=== PATIENT | female | born 1965 | race Caucasian/White ===

== ENCOUNTER → 2017-11-21 | Outpatient (CLI) | payer BC ==
--- NOTE | 2017-11-21 17:09 | WWHP ---
[facility] - HISTORY AND PHYSICAL DATE OF DICTATION: 11/21/2017 CHIEF COMPLAINT: The patient is here for her routine gynecologic exam and mammogram. HPI: This is a 51-year-old, G2, P2 with an LMP of 10/21/2017. Her is status post vasectomy. The patient has been experiencing a change in her menses. They still are regular every month and are lasting about 7 days. She states the menses are now getting heavier toward the middle of the menses and days 4, 5 and 6, seem to be the heaviest. She states the early part of the periods used to be the heavy part. During the heavy days, she has to change her protection up to every 1 hour and does use tampons and pad at those times. She also notices increased cramping during the heavier days. She has been having moodiness during her periods as well. PAST MEDICAL HISTORY: Gastroesophageal reflux disease and elevated cholesterol. MEDICATIONS: 1. Atorvastatin 1 daily. 2. Prilosec p.r.n. 3. Ibuprofen p.r.n. 4. Xanax p.r.n. ALLERGIES: TO KEFLEX. PAST SURGICAL HISTORY: section x2. Varicose vein laser treatment in 2013 and are a rectal cutaneous fistula repair in the past. 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 SOCIAL HISTORY: She denies tobacco and drug use and has 1 to 2 alcohol containing drinks per month. 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 FAMILY HISTORY: Grandmother had breast cancer. Father had prostate cancer. REVIEW OF SYSTEMS: She has lost about 17 pounds and she believes this is because she has been eating less and increasing her activity. She denies respiratory, cardiac or GI problems. PHYSICAL EXAM: Blood pressure 110/68, height 5 feet 8 inches, weight 186 pounds. Temperature 98.1, pulse 93, BMI 28. This is a well-developed, well-nourished, white female, who is alert and oriented x3, in no acute distress. HEENT is within normal limits. NECK: Supple without mass or thyromegaly. Chest and LUNGS: Clear to auscultation. HEART: Regular rate and rhythm. Breasts are without mass or discharge. Axillary exam is negative for adenopathy. Back negative for CVA tenderness. ABDOMEN: Soft, nontender, without palpable masses. Pelvic exam: Normal external genitalia. Cervix and vagina appear normal. There is no evidence of prolapse. The uterus is slightly retroverted, nongravid size and nontender. There are no palpable adnexal masses or tenderness. Rectal exam is negative for mass or tenderness and is negative for occult blood. Extremities nontender. IMPRESSION: 1. A 51-year-old female with mild hypermenorrhea with unremarkable gynecologic exam. 2. The patient's is status post vasectomy. PLAN: 1. Pap smear was performed. 2. Self breast examination was discussed. 3. Mammogram will be done today. 4. We have had a long discussion regarding her hypermenorrhea. We will have a trial of meclofenamate sodium 100 mg p.o. t.i.d. p.r.n. for heavy menstrual flow up to 6 days per cycle. She will keep a menstrual calendar. After 3 menstrual cycles, she will call if she is not having significant improvement at which time we can consider endometrial ablation as an option. 5. She will return in 1 year and p.r.n. MMODL / IJN: [id number] /
--- NOTE | 2017-11-22 13:16 | MM ---
Reason for exam: screening (asymptomatic). Last mammogram was performed 1 year and 6 months ago. History: Family history of breast cancer in maternal grandmother at age 70. Physical Findings: A clinical breast exam by your physician is recommended on an annual basis and results should be correlated with mammographic findings. MG 3D Screening Mammo W/Cad Bilateral CC and MLO view(s) were taken. Prior study comparison: June 01, 2016, bilateral MG 3d screening mammo w/cad. July 10, 2014, left breast MG work up mamm w CAD LT. The breast tissue is heterogeneously dense. This may lower the sensitivity of mammography. No suspicious abnormality. ASSESSMENT: Negative, BI-RAD 1 RECOMMENDATION: Routine screening mammogram of both breasts in 1 year.
== END | disposition home or self-care (01) ==
LOC: WWCWWP 14:21
PROVIDERS: ATTEND Obstetrics & Gynecology
DX: Z12.31 Encounter for screening mammogram for malignant neoplasm of breast (principal)
CPT/HCPCS: 77063; 77067

== ENCOUNTER → 2019-12-18 | Outpatient (CLI) | payer BC ==
[2019-12-18 08:02] VITALS: BP 136/85; PULSE 88; RESP 18; TEMP 98.1
--- NOTE | 2019-12-18 08:54 | P.HPOB ---
History of Present Illness H&P Date: 12/18/19 Chief Complaint: The patient is here for her routine gynecologic exam and ma mmogram. This is a 54-year-old with an LMP of 12/09/2019. The patient's is status post vasectomy. She states she continues to have heavy menstrual periods that are lasting about 1 week. She said has heavy menstrual flow for the first 5 days and can have to change her protection up to every 1 hour and uses both tampons and pads at those times. She states she did not use the meclofenamate sodium as prescribed 2 years ago. She states she has had issues with NSAID type medications with stomach problems and she also believes cost of the medication was a concern. She is interested in proceeding 2 endometrial ablation for her heavy menstrual flow. Her last Pap smear done on 11/21/2017 showed ASCUS with negative high-risk HPV testing. Review of Systems The patient has gained 14 pounds over the last 2 years. This was after losing about 17 pounds the year prior. She denies respiratory, cardiac, or G.I. problems. 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 History of Any Multi-Drug Resistant Organisms: None Reported Past Surgical History: Section Additional Past Surgical History / Comment(s): 2. Varicose vein laser treatment. A rectal cutaneous fistula repair. 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 - Past Family History Father Family Medical History: Cancer Additional Family Medical History / Comment(s): Prostate cancer. Grandmother Family Medical History: Cancer Additional Family Medical History / Comment(s): Breast cancer. Medications and Allergies Home Medications Medication Instructions Recorded Confirmed Type Atorvastatin [Lipitor] 40 mg PO HS 12/18/19 12/18/19 History Ibuprofen 200 mg PO Q8H 12/18/19 12/18/19 History Magnesium 250 mg PO HS 12/18/19 12/18/19 History Potassium Gluconate 99 mg PO HS 12/18/19 12/18/19 History Ubidecarenone [Co Q-10] 100 mg PO HS 12/18/19 12/18/19 History Allergies Allergy/AdvReac Type Severity Reaction Status Date / Time cephalexin monohydrate Allergy Itching Verified 12/18/19 08:02 [From Keflex] Exam Vital Signs Temp Pulse Resp BP Pulse Ox 12/18/19 08:00 98.1 F 88 18 136/85 100 Intake and Output 12/17/19 12/18/19 12/18/19 22:59 06:59 14:59 Other: Weight 90.718 kg Height 5 feet 8 inches, weight 200 pounds, BMI 30.4. This is a well-developed well-nourished white female who is alert and oriented times 3 in no acute distress. HEENT: Within normal limits. NECK: Supple without mass or thyromegaly. CHEST AND LUNGS: Clear to auscultation. HEART: Regular rate and rhythm. BREASTS: Are without mass or discharge. AXILLARY EXAM: Negative for adenopathy. BACK: Negative for CVA tenderness. ABDOMEN: Soft, nontender, without palpable masses. PELVIC EXAM: Normal external genitalia. Cervix and vagina appear normal. The cervix appears nulliparous. There is no unusual discharge. There is no evidence of prolapse. The uterus is midposition, nongravid size and nontender. There are no palpable adnexal masses or tenderness. RECTAL EXAM: Rectovaginal exam is negative for mass or tenderness and is negative for occult blood. EXTREMITIES: Nontender. IMPRESSION: 1. 54-year-old premenopausal female whose is status post vasectomy, with menorrhagia and normal gynecologic exam. 2. The patient is declining medication for her menorrhagia and would like to proceed with endometrial ablation. 3. Previous Paps or showed ASCUS with negative high-risk HPV testing on 11/21/2017. PLAN: 1. Pap smear with high-risk HPV testing was obtained. 2. Self breast awareness was discussed with the patient. 3. Screening mammogram will be done today. 4. We had a long discussion regarding options for her menorrhagia. Because of stomach issues with NSAID type medications, the patient would like to proceed directly to endometrial ablation for her heavy menstrual periods. After re viewing her Pap smear results, she will be referred for possible endometrial ablation. 5. The ACOG FAQ handout on endometrial ablation was given to the patient. 6.Osteoporosis prevention was discussed. I have stressed the importance of adequate calcium, vitamin D and regular exercise. Recommended amounts of calcium and vitamin D were also discussed. 7. I have recommended screening colonoscopy based on her age. She states she is already in the process of scheduling this through Dr. Navarrete's office. 8. She was advised to return in one year for her annual well woman exam.
--- NOTE | 2019-12-19 13:37 | MM ---
Reason for exam: screening (asymptomatic). Last mammogram was performed 2 years and 1 month ago. History: Family history of breast cancer in maternal grandmother at age 70. Physical Findings: A clinical breast exam by your physician is recommended on an annual basis and results should be correlated with mammographic findings. MG 3D Screening Mammo W/Cad Bilateral CC and MLO view(s) were taken. Prior study comparison: November 21, 2017, bilateral MG 3d screening mammo w/cad. June 01, 2016, bilateral MG 3d screening mammo w/cad. The breast tissue is heterogeneously dense. This may lower the sensitivity of mammography. Benign appearing bilateral calcifications. No suspicious abnormality. No significant changes when compared with prior studies. ASSESSMENT: Benign, BI-RAD 2 RECOMMENDATION: Routine screening mammogram of both breasts in 1 year.
== END | disposition home or self-care (01) ==
LOC: WWCWWP 07:44
PROVIDERS: ATTEND Obstetrics & Gynecology
DX: Z12.31 Encounter for screening mammogram for malignant neoplasm of breast (principal)
CPT/HCPCS: 77063; 77067

== ENCOUNTER 2020-05-04 09:58 | Day surgery (SDC) | payer BC ==
[2020-04-30 14:52] VITALS: BMI 30.4
--- NOTE | 2020-05-01 15:29 | HP ---
HISTORY AND PHYSICAL HISTORY OF PRESENT ILLNESS: The patient is a 54-year-old 2, para 2-0-0-2, initially referred for evaluation of menorrhagia. She reports a roughly 5-year history of significantly heavy bleeding on a monthly basis lasting at least 7 days, of which 5 days are very heavy. She is regularly bleeding through double protection measures. She also reports moderate dysmenorrhea. She is beginning to have some emerging cycle irregularity, with cycle length now between 21 and 28 days. Her has had a vasectomy. We discussed multiple different options and she is aware of other hormonal options for treatment but has requested NovaSure endometrial ablation. PAST MEDICAL HISTORY: Past medical history is significant for gastroesophageal reflux, hyperlipidemia and menorrhagia as noted above. PAST SURGICAL HISTORY: She had a section x2. She apparently has also had a rectal fistula repair and varicose vein stripping. There were no apparent anesthetic concerns. OBSTETRICAL HISTORY: 2, para 2-0-0-2, with two term sections. Method of contraception is vasectomy. GYNECOLOGIC HISTORY: Unremarkable, with no history of any infections to include STDs. FAMILY HISTORY: Noncontributory. SOCIAL HISTORY: The patient is and is a nonsmoker but does have remote history. She reports occasional alcohol and no other social concerns. CURRENT MEDICATIONS: Current medications include atorvastatin 40 mg daily, magnesium 250 mg daily, potassium 99 mg daily, ibuprofen as needed, and Co Q10/vitamin E/fish oil daily. ALLERGIES: She has an APPARENT ALLERGY TO CEPHALEXIN without any noted reaction. PHYSICAL EXAMINATION: Vital signs are stable. The patient is afebrile. In general, this is a well- developed, well-nourished white female in no acute distress. Her heart has a regular rhythm and rate without murmur. Her lungs are clear to auscultation bilaterally in all werner. Her abdomen is nondistended, has normoactive bowel sounds, soft, nontender, and without any palpable masses, hepatosplenomegaly or hernias. Her extremities are without any cyanosis, clubbing or edema and are nontender to palpation bilaterally. Pelvic examination demonstrates normal external genitalia and BUS with normal vaginal mucosa and cervix. There is no cervical motion tenderness. The uterus is 5-6 weeks in size, anteverted, mobile, nontender and normal in shape. Endometrial biopsy was done in one pass and sounded to 9 cm with the resulting pathology being found benign. The adnexa are normal and nontender without mass bilaterally. ASSESSMENT AND PLAN: Menorrhagia: We discussed multiple different alternatives for treatment and the patient has expressed a desire to proceed with diagnostic hysteroscopy with NovaSure endometrial ablation. Risks and complications have been discussed at length, including the risk for bleeding, bleeding requiring transfusion, infection, and injury to local structures to specifically include the possibility of uterine perforation, subsequent Asherman syndrome, and subsequent hematometra or post-ablation pain syndrome. She has understood all this and has agreed to proceed. We are scheduled for the morning of Monday, May 04, for the procedure as outlined above, diagnostic hysteroscopy with NovaSure endometrial ablation. MMODL / IJN: [id number] /
[~2020-05-04 09:58] MED LIST: DEXAMETHASONE SOD PHOSPHATE 10 MG/ML 1 ML VIAL IV ONE; HYDROmorphone 0.5 MG/0.5 ML SYRINGE IVP PRN; LACTATED RINGERS 1,000 ML IV SCH; LIDOCAINE 1% (10MG/ML) FOR IV START INTRADERMA PRN; ONDANSETRON 4 MG/2 ML VIAL IVP ONE; Pre Op ABX Message 1 EACH MISC MISCELLANE ONE; SCOPOLAMINE 1.5MG/72HR PATCH TRANSDERM ONE
[2020-05-04 10:30] LABS: Glucose,Whole Blood 107 mg/dL (75-99)
[2020-05-04] MEDS ORDERED: ONDANSETRON 4 MG/2 ML VIAL ONE (10:32)
[2020-05-04] MEDS ORDERED: PROPOFOL 10 MG/ML 20 ML VIAL IV ONE (11:18)
[2020-05-04] MEDS ORDERED: fentaNYL (PF) 50 MCG/ML 2 ML AMP ONE (11:18)
[2020-05-04] MEDS ORDERED: MIDAZOLAM 2 MG/2 ML VIAL ONE (11:18)
[2020-05-04] MEDS ORDERED: LIDOCAINE 1% INJ 10MG/ML (20 ML MDV) ONE (11:18)
[2020-05-04] MEDS ORDERED: KETOROLAC 30 MG/ML 1 ML VIAL ONE (11:18)
[2020-05-04] MEDS ORDERED: METOCLOPRAMIDE 5 MG/ML 2 ML VIAL IVP PRN (11:54)
[2020-05-04] MEDS ORDERED: KETOROLAC 30 MG/ML 1 ML VIAL IVP PRN (11:54)
[2020-05-04] MEDS ORDERED: Acetaminophen-Codeine 300-30mg TAB PO PRN ×2 (11:54)
[2020-05-04] MEDS ORDERED: IBUPROFEN 600 MG TAB PO PRN (11:54)
[2020-05-04] MEDS ORDERED: SIMETHICONE 80 MG CHEWABLE PO PRN (11:54)
[2020-05-04] MEDS ORDERED: ONDANSETRON 4 MG/2 ML VIAL IVP PRN (11:54)
[2020-05-04] MEDS ORDERED: diphenhydrAMINE 50 MG/ML 1 ML VIAL IVP PRN (11:54)
[2020-05-04] MEDS ORDERED: LACTATED RINGERS 1,000 ML IV SCH (12:00)
--- NOTE | 2020-05-04 12:02 | P.OP ---
Date of Procedure: 05/04/20 Preoperative Diagnosis: #1. Menorrhagia Postoperative Diagnosis: Same Procedure(s) Performed: #1. Diagnostic hysteroscopy #2. NovaSure endometrial ablation Anesthesia: other (Gen. by LMA) Surgeon: Sean Victoria Estimated Blood Loss (ml): 2 IV fluids (ml): 400 Urine output (ml): 20 Pathology: none sent Condition: stable Disposition: PACU Operative Findings: Preoperative pelvic examination demonstrated a 5-6 week anteverted mobile normal shaped uterus with normal adnexa bilaterally. Intraoperatively, the bilateral tubal ostia regions were seen after the openings of. There was some minimal shaggy tissue scattered throughout the fundus. The uterus sounded to 9 cm while the cervix was 3 cm in length. The settings for the NovaSure tool where a length of 6.0 cm, a width of 4.8 cm for a total power of 158 W. After a total run time of 75 seconds, the base unit read "procedure complete." There were, however, several stoppages with a vacuum failure during the procedure that resumed without difficulty. The postprocedural result appeared to be excellent. The patient is a borderline candidate for vaginal hysterectomy, more likely a good candidate for a da Flori approach should it be necessary. Description of Procedure: The patient was prepped and draped in usual fashion after general anesthesia was administered by the anesthesiologist. A weighted speculum was placed and the anterior lip of the cervix grasped with single-tooth tenaculum. The bladder was drained of approximately 20 mL of clear sury urine. The uterus was sounded to 9 cm with a cervical length of 3 cm as noted above. Serial dilation was carried out to admit the diagnostic hysteroscope which was placed and the uterus and the cavity distended with saline. The findings are as noted above with no obvious pathology and the bilateral tubal ostia were seen. The scope was then set aside and the NovaSure tool placed in the fundus, opened, and seated well. The settings for the tool were as noted above, a length of 6.0 cm, a width of 4.8 cm, for a total power 158 W. The cavity check was attempted and passed without difficulty. The tool was enabled and the run started. During the run, there were several stoppages of the radiofrequency secondary to a vacuum failure as noted on the base unit. The tool was really enabled and the run restarted at the same point. After 3 such stoppages, the procedure finally continued until the base unit read "procedure complete." The 2 was closed, removed, and discarded and the diagnostic hysteroscope replaced into the uterine cavity with an excellent result apparent. All instrumentation was then removed. There was no ongoing bleeding either from the uterus nor from the tenaculum site. Estimated blood loss for the entire case was 2 mL or less. There were no c omplications. All sponge, instrument, and needle counts were correct. The patient is a marginal candidate for vaginal hysterectomy at best implying that a da Flori approach would probably be the best approach should hysterectomy become necessary. The patient tolerated the procedure well and proceeded to the recovery room in stable condition.
[2020-05-04 12:04] VITALS: TEMP 97.6
[2020-05-04 12:40] VITALS: RESP 18
[2020-05-04 12:56] VITALS: BP 120/78; PULSE 65
== END 2020-05-04 13:07 | disposition home or self-care (01) ==
LOC: OR 09:58
PROVIDERS: ATTEND Obstetrics & Gynecology
DX: N92.0 Excessive and frequent menstruation with regular cycle (principal); E78.5 Hyperlipidemia, unspecified; K21.9 Gastro-esophageal reflux disease without esophagitis; Z88.1 Allergy status to other antibiotic agents; Z87.891 Personal history of nicotine dependence; Z79.899 Other long term (current) drug therapy; Z98.890 Other specified postprocedural states; Z98.891 History of uterine scar from previous surgery
CPT/HCPCS: 81025; 58563; J2250; J1100; J2405; J2001; J3010; J1885; J2704

== ENCOUNTER → 2021-11-16 | Outpatient (CLI) | payer BC ==
[2021-11-16 12:58] VITALS: BP 113/75; PULSE 88; RESP 18; TEMP 97.7
--- NOTE | 2021-11-16 13:29 | P.HPOB ---
History of Present Illness H&P Date: 11/16/21 Chief Complaint: The patient is here for her routine gynecologic exam and ma mmogram. This is a 55-year-old with an LMP of April 2020. She is status post endometrial ablation. She has been amenorrheic since the ablation. She has occasional mild hot flashes but not very significant. She is without gynecologic complaints. Review of Systems The patient's weight has been stable over the last year. She denies respiratory, cardiac, or G.I. problems. 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 History of Any Multi-Drug Resistant Organisms: None Reported Past Surgical History: Section, Uterine Ablation Additional Past Surgical History / Comment(s): 2. Varicose vein laser treatment. A rectal cutaneous fistula repair. Endometrial ablation 2019. Past Psychological History: No Psychological Hx Reported Smoking Status: Former smoker Past Alcohol Use History: Occasional (0-3 per week.) Past Drug Use History: Marijuana Additional Drug Use History / Comment(s): Denies current use of marijuana. - Past Family History Father Family Medical History: Cancer Additional Family Medical History / Comment(s): Prostate cancer. Grandmother Family Medical History: Cancer Additional Family Medical History / Comment(s): Breast cancer. Medications and Allergies Home Medications Medication Instructions Recorded Confirmed Type Atorvastatin [Lipitor] 40 mg PO HS 12/18/19 05/04/20 History Ibuprofen 200 mg PO Q8H 12/18/19 05/04/20 History Ubidecarenone [Co Q-10] 100 mg PO HS 12/18/19 05/04/20 History ALPRAZolam [Xanax] 0.5 mg PO DAILY PRN 04/30/20 05/04/20 History Multivitamins, Thera [Multivitamin 1 tab PO DAILY 04/30/20 05/04/20 History (formulary)] Allergies Allergy/AdvReac Type Severity Reaction Status Date / Time cephalexin monohydrate Allergy Itching/alpesh Verified 11/16/21 12:53 [From Keflex] h Exam Vital Signs Temp Pulse Resp BP Pulse Ox 11/16/21 12:53 97.7 F 88 18 113/75 100 Intake and Output 11/15/21 11/16/2111/16/22 22:59 06:59 14:59 Other: Weight 90.718 kg Height 5 feet 9 inches, weight 200 pounds, BMI 29.5. This is a well-developed well-nourished white female who is alert and oriented times 3 in no acute distress. HEENT: Within normal limits. NECK: Supple without mass or thyromegaly. CHEST AND LUNGS: Clear to auscultation. HEART: Regular rate and rhythm. BREASTS: Are without mass or discharge. AXILLARY EXAM: Negative for adenopathy. BACK: Negative for CVA tenderness. ABDOMEN: Soft, nontender, without palpable masses. PELVIC EXAM: Normal external genitalia. Cervix and vagina appear normal. There is no unusual discharge. There is no evidence of prolapse. The uterus is midposition, nongravid size and nontender. There are no palpable adnexal masses or tenderness. RECTAL EXAM: Rectovaginal exam is negative for mass or tenderness and is negative for occult blood. EXTREMITIES: Nontender. IMPRESSION: 1. 55-year-old perimenopausal female with normal gynecologic exam. 2. Amenorrhea following endometrial ablation in 2019. 3. Very mild vasomotor symptoms. PLAN: 1. Pap smear was deferred since she had a normal Pap smear cotest in 2019. We will plan on repeating Pap smear cotest in 1-2 years since her previous Pap smear in 2018 showed ASCUS. 2. Self breast awareness was discussed with the patient. We have also discussed symptoms associated with inflammatory breast cancer. 3. Screening mammogram will be done today. 4. Osteoporosis prevention was discussed. I have stressed the importance of adequate calcium, vitamin D and regular exercise. Recommended amounts of calcium and vitamin D were also discussed. 5. She has completed her Covid vaccination series. 6. She was advised to return in one year for her annual well woman exam.
--- NOTE | 2021-11-17 11:57 | MM ---
Reason for exam: screening (asymptomatic). Last mammogram was performed 1 year and 11 months ago. History: Family history of breast cancer in maternal grandmother at age 70. Physical Findings: A clinical breast exam by your physician is recommended on an annual basis and results should be correlated with mammographic findings. MG 3D Screening Mammo W/Cad Bilateral CC and MLO view(s) were taken. Prior study comparison: December 18, 2019, bilateral MG 3d screening mammo w/cad. November 21, 2017, bilateral MG 3d screening mammo w/cad. The breast tissue is heterogeneously dense. This may lower the sensitivity of mammography. Stable regional punctate calcifications bilaterally posterior lateral aspects associated with dense tissue. Grouped calcifications posterior right breast 8 o'clock are increased. Nodular asymmetry central right MLO is more defined. ASSESSMENT: Incomplete: need additional imaging evaluation, BI-RAD 0 RECOMMENDATION: Special view mammogram of the right breast. (magification and 3D) If lesion persists on supplemental views, image directed ultrasound is recommended. [facility] will attempt to contact patient to return for supplemental views and ultrasound if indicated.
== END ==
LOC: WWCWWP 12:43
PROVIDERS: ATTEND Obstetrics & Gynecology
DX: Z12.31 Encounter for screening mammogram for malignant neoplasm of breast (principal); Z01.419 Encounter for gynecological examination (general) (routine) without abnormal findings; N95.1 Menopausal and female climacteric states; N91.2 Amenorrhea, unspecified; E78.5 Hyperlipidemia, unspecified; Z87.891 Personal history of nicotine dependence; Z88.1 Allergy status to other antibiotic agents
CPT/HCPCS: 77063; 77067

== ENCOUNTER → 2022-04-04 | Outpatient (CLI) | payer BC ==
--- NOTE | 2022-04-05 07:09 | XR ---
EXAMINATION TYPE: XR cervical spine comp DATE OF EXAM: 04/04/2022 COMPARISON: NONE HISTORY: Pain TECHNIQUE: Four views are submitted. FINDINGS: The odontoid is intact. There are no compression deformities. The prevertebral soft tissue structur es are within normal limits. Loss the normal cervical lordosis. Hypertrophic spurring and degenerati ve disc disease C5-6 and C6-C7. Mild foraminal encroachment is levels bilaterally. Degenerative disc disease C4-C5. IMPRESSION: 1. Loss the normal cervical lordosis is a nonspecific finding. Multilevel degenerative disc disease. Recommend follow-up MRI..
== END | disposition home or self-care (01) ==
LOC: RADXRYALE 15:42
PROVIDERS: ATTEND Physician Assistant Medical
DX: M50.321 Other cervical disc degeneration at C4-C5 level (principal)
CPT/HCPCS: 72050

== ENCOUNTER → 2022-05-30 | Outpatient (CLI) | payer BC ==
--- NOTE | 2022-05-30 08:46 | MM ---
Reason for Exam: Follow-up at short interval from prior study. Last screening mammogram was performed 6 month(s) ago. Patient History: Menarche at age 14. First Full-Term at age 32. Late child-bearing (after 32). Postmenopausal. Maternal grandmother had breast cancer, age 70. Risk Values: Leslie 5 year model risk: 1.6%. NCI Lifetime model risk: 11.4%. Prior Study Comparison: 12/18/2019 Bilateral Screening Mammogram, [facility]. 11/16/2021 Bilateral Screening Mammogram, [facility]. 11/30/2021 Right Diagnostic Mammogram, [facility]. Tissue Density: Right: The breast tissue is heterogeneously dense. This may lower the sensitivity of mammography. Findings: Analyzed By CAD. Few grouped microcalcifications far posterior 8-9 o'clock right breast remain unchanged for 6 months. Additional central nodular asymmetric density right MLO view unchanged for 6 months as well. Ongoing short interval follow-up recommended. No significant change. Overall Assessment: Probably benign, BI-RAD 3 Management: Diagnostic Mammogram of both breasts in 6 months. 1. Total one-year follow-up right breast findings and annual exam of the left breast. 2. Patient should continue self breast exams. A clinical breast exam by your physician is recommended on an annual basis. 3. This exam should not preclude additional follow-up of suspicious palpable abnormalities. Results were given to the patient verbally at the time of exam. Electronically signed and approved by: Nahid Gan M.D. Radiologist
== END | disposition home or self-care (01) ==
LOC: RADMAMWWP 08:22
PROVIDERS: ATTEND Obstetrics & Gynecology
DX: R92.8 Other abnormal and inconclusive findings on diagnostic imaging of breast (principal); Z78.0 Asymptomatic menopausal state; Z80.3 Family history of malignant neoplasm of breast
CPT/HCPCS: 77061; 77065

== ENCOUNTER 2022-09-20 09:47 | Day surgery (SDC) | payer BC ==
[2022-09-15 15:47] VITALS: BMI 29.6
[~2022-09-20 09:47] MED LIST changes: -DEXAMETHASONE SOD PHOSPHATE 10 MG/ML 1 ML VIAL IV ONE; -HYDROmorphone 0.5 MG/0.5 ML SYRINGE IVP PRN; -ONDANSETRON 4 MG/2 ML VIAL IVP ONE; -Pre Op ABX Message 1 EACH MISC MISCELLANE ONE; -SCOPOLAMINE 1.5MG/72HR PATCH TRANSDERM ONE
[2022-09-20] MEDS ORDERED: LACTATED RINGERS 1,000 ML IV ONE (10:42)
[2022-09-20 10:51] VITALS: TEMP 98
[2022-09-20] MEDS ORDERED: PROPOFOL 10 MG/ML 20 ML VIAL IV ONE (11:19)
--- NOTE | 2022-09-20 11:24 | P.GSHP ---
History of Present Illness H&P Date: 09/20/22 Chief Complaint: Colon cancer screening 56-year-old female here today for colonoscopy. Last colonoscopy 13 years ago. That was normal. No family history of colon cancer. No bowel complaints. 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 History of Any Multi-Drug Resistant Organisms: None Reported Past Surgical History: Section, Uterine Ablation Additional Past Surgical History / Comment(s): 2. Varicose vein laser treatment. A rectal cutaneous fistula repair. Endometrial ablation 2019. COLONOSCOPY Past Anesthesia/Blood Transfusion Reactions: No Reported Reaction Smoking Status: Former smoker - Past Family History Father Family Medical History: Cancer Additional Family Medical History / Comment(s): Prostate cancer. Grandmother Family Medical History: Cancer Additional Family Medical History / Comment(s): Breast cancer. Medications and Allergies Home Medications Medication Instructions Recorded Confirmed Type Atorvastatin [Lipitor] 40 mg PO HS 12/18/19 09/15/22 History Ibuprofen 200 mg PO Q8H 12/18/19 09/15/22 History Ubidecarenone [Co Q-10] 100 mg PO HS 12/18/19 09/15/22 History ALPRAZolam [Xanax] 0.5 mg PO DAILY PRN 04/30/20 09/15/22 History Multivitamins, Thera [Multivitamin 1 tab PO DAILY 04/30/20 09/15/22 History (formulary)] Allergies Allergy/AdvReac Type Severity Reaction Status Date / Time cephalexin monohydrate Allergy Itching/alpesh Verified 09/15/22 15:39 [From Keflex] h Surgical - Exam Vital Signs Temp Pulse Resp BP Pulse Ox 98 F 91 18 133/84 100 09/20/22 10:50 09/20/22 10:50 09/20/22 10:50 09/20/22 10:50 09/20/22 10:50 Physical exam: General: Well-developed, well-nourished HEENT: Normocephalic, sclerae nonicteric Abdomen: Nontender, nondistended Extremities: No edema Neuro: Alert and oriented Assessment and Plan (1) Colon cancer screening Narrative/Plan: Will proceed with colonoscopy at this time. Current Visit: Yes Status: Acute Code(s): Z12.11 - ENCOUNTER FOR SCREENING FOR MALIGNANT NEOPLASM OF COLON SNOMED Code(s): 180836263
--- NOTE | 2022-09-20 11:42 | P.PCN ---
Date of Procedure: 09/20/22 Procedure(s) Performed: PREOPERATIVE DIAGNOSIS: Colon cancer screening POSTOPERATIVE DIAGNOSIS: Sigmoid colon polyp, diverticulosis PROCEDURE: Colonoscopy with snare polypectomy ANESTHESIA: MAC SURGEON: Sourav Gonzales M.D. SPECIMENS: Sigmoid colon polyp ENDOSCOPIC PROCEDURE: The patient was placed on the endoscopy table in the left decubitus position. The Olympus colonoscope was inserted into the anus and passed under direct visualization to the base of the cecum. The appendiceal orifice was visualized. From that point the scope was slowly withdrawn inspecting all surfaces carefully. There were no neoplastic inflammatory or polypoid lesions throughout the cecum, ascending, transverse, and descending colon. In the sigmoid was a small polyp removed using snare cautery technique. The remainder the sigmoid and rectum was normal. There was mild left-sided diverticulosis. Digital rectal examination was normal. The patient was taken to the recovery room in stable condition per anesthesia guidelines. RECOMMENDATIONS: Resume diet. Await biopsy results.
[2022-09-20 11:45] VITALS: BP 129/68; PULSE 84; RESP 16
== END 2022-09-20 12:34 | disposition home or self-care (01) ==
LOC: ORWHC2ENDO 09:47
PROVIDERS: ATTEND Surgery
DX: Z12.11 Encounter for screening for malignant neoplasm of colon (principal); D12.5 Benign neoplasm of sigmoid colon; K57.30 Diverticulosis of large intestine without perforation or abscess without bleeding; K21.9 Gastro-esophageal reflux disease without esophagitis; E78.5 Hyperlipidemia, unspecified; Z86.19 Personal history of other infectious and parasitic diseases; Z98.890 Other specified postprocedural states; Z87.891 Personal history of nicotine dependence; Z80.42 Family history of malignant neoplasm of prostate; Z80.3 Family history of malignant neoplasm of breast; Z79.1 Long term (current) use of non-steroidal anti-inflammatories (NSAID); Z79.02 Long term (current) use of antithrombotics/antiplatelets; Z79.899 Other long term (current) drug therapy; Z79.52 Long term (current) use of systemic steroids; Z88.1 Allergy status to other antibiotic agents
CPT/HCPCS: 81025; 45385; J2704; 88305

== ENCOUNTER → 2023-02-14 | Outpatient (CLI) | payer BC ==
[2023-02-14 08:52] VITALS: BP 104/70; PULSE 85; RESP 16; TEMP 98.8
--- NOTE | 2023-02-14 09:32 | P.HPOB ---
History of Present Illness H&P Date: 02/14/23 Chief Complaint: The patient is here for her routine gynecologic exam and ma mmogram. This is a 57-year-old with an LMP of 2019. She is status post endometrial ablation in 2019 and has been amenorrheic since then. She has been experiencing some mild hot flashes during the day and at night. She states they are tolerable. She is otherwise without gynecologic complaints. Review of Systems She has gained about 4 pounds over the past year. She denies respiratory or GI problems. Cardiac: Occasional palpitation. 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 History of Any Multi-Drug Resistant Organisms: None Reported Past Surgical History: Section, Uterine Ablation Additional Past Surgical History / Comment(s): 2. Varicose vein laser treatment. A rectal cutaneous fistula repair. Endometrial ablation 2019. Colonoscopy (polyp removed)2021. Past Psychological History: No Psychological Hx Reported Smoking Status: Former smoker Past Alcohol Use History: Occasional (0-3 per week.) Past Drug Use History: Marijuana Additional Drug Use History / Comment(s): Denies current use of marijuana. Additional History: She has been since 2009. She has 6 grandchildren. 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 - Past Family History Father Family Medical History: Cancer Additional Family Medical History / Comment(s): Prostate cancer. Grandmother Family Medical History: Cancer Additional Family Medical History / Comment(s): Breast cancer. Medications and Allergies Home Medications Medication Instructions Recorded Confirmed Type Atorvastatin [Lipitor] 40 mg PO HS 12/18/19 02/14/23 History Ibuprofen 200 mg PO Q8H 12/18/19 02/14/23 History Ubidecarenone [Co Q-10] 100 mg PO HS 12/18/19 02/14/23 History ALPRAZolam [Xanax] 0.5 mg PO DAILY PRN 04/30/20 02/14/23 History Multivitamins, Thera [Multivitamin 1 tab PO DAILY 04/30/20 02/14/23 History (formulary)] Cider Vinegar [Apple Cider Vinegar] 300 mg PO DAILY 02/14/23 02/14/23 History Allergies Allergy/AdvReac Type Severity Reaction Status Date / Time cephalexin monohydrate Allergy Itching/alpesh Verified 02/14/23 08:48 [From Keflex] h Exam Vital Signs Temp Pulse Resp BP Pulse Ox 02/14/23 08:49 98.8 F 85 16 104/70 99 Intake and Output 02/13/23 02/14/23 02/14/23 22:59 06:59 14:59 Other: Weight 92.533 kg Height 5 feet 8 inches, weight 204 pounds, BMI 31.0. This is a well-developed well-nourished white female who is alert and oriented times 3 in no acute distress. HEENT: Within normal limits. NECK: Supple without mass or thyromegaly. CHEST AND LUNGS: Clear to auscultation. HEART: Regular rate and rhythm. BREASTS: Are without mass or discharge. AXILLARY EXAM: Negative for adenopathy. BACK: Negative for CVA tenderness. ABDOMEN: Soft, nontender, without palpable masses. PELVIC EXAM: Normal external genitalia with minimal atrophy. Cervix and vagina appear normal with minimal atrophy. There is no unusual discharge. There is no evidence of prolapse. The uterus is midposition, nongravid size and nontender. There are no palpable adnexal masses or tenderness. RECTAL EXAM: Rectovaginal exam is negative for mass or tenderness and is negative for occult blood. EXTREMITIES: Nontender. IMPRESSION: 1. 57-year-old menopausal female with normal gynecologic exam. 2. Mild vasomotor symptoms. 3. Previous Pap smear in 2018 showing ASCUS with negative high-risk HPV testing. Her most recent Pap smear cotest on 12/18/2019 was negative. 4. Last year's screening mammogram required a right breast workup and a 6 month follow-up, which were probably benign. PLAN: 1. Pap smear cotest was performed. If this is negative we will return to regular screening intervals. 2. Self breast awareness was discussed with the patient. We have also discussed symptoms associated with inflammatory breast cancer. 3. Diagnostic bilateral mammogram will be done today. 4. Osteoporosis prevention was discussed. I have stressed the importance of adequate calcium, vitamin D and regular exercise. Recommended amounts of calcium and vitamin D were also discussed. 5. She was advised to return in one year for her annual well woman exam.
--- NOTE | 2023-02-14 09:54 | MM ---
Reason for Exam: Follow-up at short interval from prior study. Last mammogram was performed 1 year(s) and 3 month(s) ago. Patient History: Menarche at age 14. First Full-Term at age 32. Late child-bearing (after 30). Postmenopausal. Maternal grandmother had breast cancer, age 70. Risk Values: Leslie 5 year model risk: 1.6%. NCI Lifetime model risk: 11.2%. Tissue Density: The breast tissue is heterogeneously dense. This may lower the sensitivity of mammography. Findings: Analyzed By CAD. Stable right breast findings compared to prior. No new suspicious masses, calcifications or distortions. Overall Assessment: Benign, BI-RAD 2 Management: Screening Mammogram of both breasts in 1 year. . Results were given to the patient verbally at the time of exam. Patient should continue monthly self-breast exams. A clinical breast exam by your physician is recommended on an annual basis. This exam should not preclude additional follow-up of suspicious palpable abnormalities. Note on Leslie scores and lifetime risk: 1. A Leslie score greater than 3% is considered moderate risk. If this is the case, consider specialist referral to assess eligibility for a risk reducing agent. 2. If overall lifetime risk for the development of breast cancer is 20% or higher, the patient may qualify for future screening with alternating mammogram and breast MRI. Electronically signed and approved by: Neeraj Munoz DO
== END ==
LOC: WWCWWP 08:43
PROVIDERS: ATTEND Obstetrics & Gynecology
DX: Z01.419 Encounter for gynecological examination (general) (routine) without abnormal findings (principal); R92.8 Other abnormal and inconclusive findings on diagnostic imaging of breast; E78.5 Hyperlipidemia, unspecified; K21.9 Gastro-esophageal reflux disease without esophagitis; R23.2 Flushing; R92.2 Inconclusive mammogram; Z78.0 Asymptomatic menopausal state; Z79.1 Long term (current) use of non-steroidal anti-inflammatories (NSAID); Z80.3 Family history of malignant neoplasm of breast; Z87.891 Personal history of nicotine dependence; Z88.1 Allergy status to other antibiotic agents
CPT/HCPCS: 77062; 77066

== ENCOUNTER → 2024-10-22 | Outpatient (CLI) | payer BC ==
[2024-10-22 16:14] VITALS: BP 121/79; PULSE 93; RESP 17; TEMP 98.7
--- NOTE | 2024-10-22 16:57 | P.HPOB ---
History of Present Illness H&P Date: 10/22/24 Chief Complaint: The patient is here for her routine gynecologic exam and ma mmogram. This is a 58-year-old G2, P2 with an LMP of 2019. She continues to have some hot flashes, but they are on the decline. She has been experiencing some vaginal dryness and discomfort with sexual intercourse. She denies any postmenopausal bleeding. Review of Systems The patient has lost 5 pounds over the last year. She has been trying to lose weight with diet and exercise. She denies respiratory, cardiac, or G.I. problems. 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 History of Any Multi-Drug Resistant Organisms: None Reported Past Surgical History: Section, Uterine Ablation Additional Past Surgical History / Comment(s): 2. Varicose vein laser treatment. A rectal cutaneous fistula repair. Endometrial ablation 2019. Colonoscopy (polyp removed)2021. Past Psychological History: No Psychological Hx Reported Smoking Status: Former smoker Past Alcohol Use History: Occasional Past Drug Use History: Marijuana (Infrequently has vaped marijuana substances to help her sleep. She denies smoking marijuana.) Additional History: She has been since 2009. She has 5 grandchildren. 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 - Past Family History Father Family Medical History: Cancer Additional Family Medical History / Comment(s): Prostate cancer. Grandmother Family Medical History: Cancer Additional Family Medical History / Comment(s): Breast cancer. Medications and Allergies Home Medications Medication Instructions Recorded Confirmed Type Ibuprofen 200 mg PO Q8H 12/18/19 10/22/24 History Ubidecarenone [Co Q-10] 100 mg PO HS 12/18/19 10/22/24 History ALPRAZolam [Xanax] 0.5 mg PO DAILY PRN 04/30/20 10/22/24 History Multivitamins, Thera [Multivitamin 1 tab PO DAILY 04/30/20 10/22/24 History (formulary)] Cholecalciferol (Vitamin D3) 1 tab PO DAILY 10/22/24 10/22/24 History [Vitamin D3 (50 Mcg = 2000 Iu)] Magnesium Gluconate 12.5 mg PO DAILY 10/22/24 10/22/24 History Pravastatin Sodium [Pravachol] 20 mg PO DAILY 10/22/24 10/22/24 History Allergies Allergy/AdvReac Type Severity Reaction Status Date / Time cephalexin monohydrate Allergy Itching/alpesh Verified 10/22/24 16:10 [From Keflex] h Exam Vital Signs Temp Pulse Resp BP Pulse Ox 10/22/24 16:13 98.7 F 93 17 121/79 98 Intake and Output 10/22/24 10/22/24 10/22/24 06:59 14:59 22:59 Other: Weight 90.265 kg Height 5 feet 8 inches, weight 199 pounds, BMI 30.3. This is a well-developed well-nourished white female who is alert and oriented times 3 in no acute distress. HEENT: Within normal limits. NECK: Supple without mass or thyromegaly. CHEST AND LUNGS: Clear to auscultation. HEART: Regular rate and rhythm. BREASTS: Are without mass or discharge. AXILLARY EXAM: Negative for adenopathy. BACK: Negative for CVA tenderness. ABDOMEN: Soft, nontender, without palpable masses. PELVIC EXAM: Normal external genitalia with mild atrophy. Cervix and vagina appear normal with mild atrophy. There is no unusual discharge. There is no evidence of prolapse. The uterus is midposition, nongravid size and nontender. There are no palpable adnexal masses or tenderness. RECTAL EXAM: Rectovaginal exam is negative for mass or tenderness and is negative for occult blood. EXTREMITIES: Nontender. IMPRESSION: 1. 58-year-old menopausal female with normal gynecologic exam 2. Vaginal dryness and dyspareunia secondary to genital atrophy. PLAN: 1. Pap smear was deferred since she had a negative Pap smear cotest on 02/14/2023. 2. Self breast awareness was discussed with the patient. We have also discussed symptoms associated with inflammatory breast cancer. 3. Screening mammogram will be done today. 4. Osteoporosis prevention was discussed. 5. Trial of Vagifem 10 mcg into the vagina 2 times weekly. During the first 2 weeks she can insert 1 into the vagina every other day. She can also use a lubricant as needed. 6. She was advised to return in one year for her annual well woman exam and as needed.
--- NOTE | 2024-10-23 07:16 | MM ---
Reason for Exam: Screening (asymptomatic). Last mammogram was performed 1 year(s) and 8 month(s) ago. Patient History: Menarche at age 14. First Full-Term at age 32. Late child-bearing (after 30). Postmenopausal. Maternal grandmother had breast cancer, age 70. Risk Values: Leslie 5 year model risk: 1.7%. NCI Lifetime model risk: 10.9%. Prior Study Comparison: 11/30/2021 Right Diagnostic Mammogram, [facility]. 05/30/2022 Right MG 3D diag mammo w/cad RT, [facility]. 02/14/2023 Bilateral MG 3D diag mammo w/cad [facility], [facility]. Tissue Density: The breasts are heterogeneously dense, which may obscure small masses. Findings: Analyzed By CAD. Right breast: There is no suspicious group of microcalcifications or new suspicious mass. Left breast: There is no suspicious group of microcalcifications or new suspicious mass. Overall Assessment: Negative, BI-RAD 1 Management: Screening Mammogram of both breasts in [address] [facility] will attempt to contact patient to return for supplemental views and ultrasound if indicated. Patient should continue monthly self-breast exams. A clinical breast exam by your physician is recommended on an annual basis. This exam should not preclude additional follow-up of suspicious palpable abnormalities. Note on Leslie scores and lifetime risk: 1. A Leslie score greater than 3% is considered moderate risk. If this is the case, consider specialist referral to assess eligibility for a risk reducing agent. 2. If overall lifetime risk for the development of breast cancer is 20% or higher, the patient may qualify for future screening with alternating mammogram and breast MRI. [facility], , 10/23/2024 7:13 AM. Electronically signed and approved by: Neeraj Munoz DO
== END ==
LOC: WWCWWP 15:37
PROVIDERS: ATTEND Obstetrics & Gynecology
DX: Z01.419 Encounter for gynecological examination (general) (routine) without abnormal findings (principal); N94.10 Unspecified dyspareunia; N89.8 Other specified noninflammatory disorders of vagina; N90.5 Atrophy of vulva; Z12.31 Encounter for screening mammogram for malignant neoplasm of breast; Z80.3 Family history of malignant neoplasm of breast; Z88.1 Allergy status to other antibiotic agents; Z87.891 Personal history of nicotine dependence
CPT/HCPCS: 77063; 77067